=== PATIENT | male | born 1995 | race Caucasian/White ===

== ENCOUNTER → 2020-02-09 15:12 | Outpatient (BNVA) | payer MEDICAID, SELFPAY | PROVIDERS: Family Provider Physician Assistant; Visit Provider Nurse Practitioner Family | DX: M25.571 Pain in right ankle and joints of right foot (principal); R60.9 Edema, unspecified | CPT/HCPCS: 73610 ==

== ENCOUNTER 2020-06-15 14:02 | Emergency (ER) | payer MEDICAID, SELFPAY ==
[2020-06-15 14:22] VITALS: BP 134/84; PULSE 91; RESP 12; TEMP 36.9; O2SAT 97; BMI 30.9
--- NOTE | 2020-06-15 14:39 | ED_ITS ---
HPI - General Adult General: Chief complaint: General Medical Stated complaint: SORE THROAT, BILATERAL EAR PAIN Time Seen by Provider: 06/15/20 14:31 Source: patient Mode of arrival: ambulatory Limitations: no limitations History of Present Illness: HPI narrative: sore throat and ear pain Onset (ago): day(s) (3) Review of Systems General: Reports: 10 or more systems reviewed and unremarkable except in HPI and below Const: Reports: change in appetite and fatigue ENMT: Reports: throat pain, uvular edema, enlarged tonsils and odynophagia PFSH ED PFSH: Social History Smoking and tobacco status: current every day smoker Physical Exam Const: COMMON NORMALS: no acute distress, patient oriented x3, no limitations and alert GENERAL APPEARANCE: cooperative and comfortable ORIENTATION/CONSCIOUSNESS: Yes awake, Yes oriented to person, Yes oriented to place and Yes oriented to time HENMT: COMMON NORMALS: normocephalic, atraumatic, external ears normal, EAC's normal, TM's normal bilaterally and Normal external nose present HEAD & SCALP: normal to inspection, normocephalic and atraumatic FACE & SINUS: normal facial exam, sinuses nontender and face symmetric NOSE: Normal external nose present, Normal nares present and No nasal discharge present EXTERNAL EAR: Yes external ears normal EXTERNAL AUDITORY CANAL: EAC's normal TYMPANIC MEMBRANE: TM's normal bilaterally, TM normal on the left and TM abnormal (fluid and slight bulging and pain ) TM laterality: right MOUTH: Normal oral and palatal mucosa present, lip normal and tongue normal THROAT: abnormal tonsil bilateral erythema and hypertrophy and uvular edema Eye: COMMON NORMALS: Equal, round and reactive pupils present, EOMs intact bilaterally and conjunctivae normal GENERAL EYE: appearance normal, both eyes and all related structures and normal light reflex EYELID: eyelids normal CONJUNCTIVA: Yes conjunctivae normal PUPIL: Yes Equal, round and reactive pupils present EOM: Yes EOM abnormal DIRECT OPHTHALMOSCOPY: Yes normal light reflex Neck/C-Spine: COMMON NORMALS: full ROM, no lymphadenopathy, supple, no meningeal signs, no JVD and Thyroid normal GENERAL: Yes normal visual inspection THYROID: Thyroid normal CERVICAL SPINE: Yes cervical ROM normal and Yes normal cervical lordosis Lymph: LYMPHATIC: no lymphadenopathy noted Chest: COMMONS NORMALS: normal inspection of the chest and normal palpation of entire chest wall Resp: COMMON NORMALS: normal respiratory effort, No retractions and clear to auscultation bilaterally AUSCULTATION: clear to auscultation bilaterally Cardio: COMMON NORMALS: no JVD, regular rate, regular rhythm, S1 normal heart sound present, S2 normal heart sound present, No gallops present (Cardio), No clicks present (Cardio), No murmurs present (Cardio), No rub (Cardio) and Peripheral pulses 2+ throughout RATE: regular rate RHYTHM: regular rhythm HEART SOUNDS: S1 normal heart sound present and S2 normal heart sound present PERIPHERAL PULSES: Peripheral pulses 2+ throughout GI: COMMON NORMALS: Normal to inspection, nondistended, normoactive bowel sounds present, Soft to palpation, non-tender and no masses PALPATION: Yes Soft to palpation : COMMON NORMALS: Yes no CVA tenderness BLADDER/KIDNEY EXAM: Yes no CVA tenderness Back/Pelvis: COMMON NORMALS: no CVA tenderness, thoracic and lumbar spine normal to inspection, no thoracic nor lumbar tenderness and thoraco-lumbar ROM normal Extremity: COMMON NORMALS: normal to inspection, full ROM, capillary refill normal, no joint enlargement, no clubbing, cyanosis or edema, no calf tenderness and no pedal edema GENERAL: Yes normal exam except as noted Neuro: COMMON NORMALS: patient oriented x3, moves all extremities, no focal motor deficits, no sensory deficits noted and gait normal SENSORIUM/ORIENTATION: Yes alert, Yes oriented to person, Yes oriented to place and Yes oriented to time MENINGEAL SIGNS: Yes no meningeal signs Psych: COMMON NORMALS: mental status grossly normal, Normal thought process present, cooperative, normal affect, speech normal and activity/motor behavior normal SPEECH: Yes normal speech THOUGHT PROCESS: Normal thought process present Skin: COMMON NORMALS: no rashes or lesions noted, no wounds and turgor normal GENERAL SKIN EXAM: no rashes or lesions noted and turgor normal Course ED course: Pt presents with sore throat and ear pain x 3 days; no noted fever. We will give PCN shot as swallowing pills is very painful for the pt. Steroid and toradol given for swelling and pain. Will DC and advise follow up with PCP if not improved in 48 hours. Vital Signs: Vital signs: Vital Signs Temperature 98.5 F 06/15/20 14:22 Pulse Rate 91 06/15/20 14:22 Respiratory Rate 12 06/15/20 14:22 Blood Pressure 134/84 06/15/20 14:22 Pulse Oximetry 97 06/15/20 14:22 Discharge Plan Discharge Patient Disposition: Home Clinical Impression: Strep pharyngitis Condition: Stable Prescriptions: No Action No Known Home Medications RF: 0 Discharge Orders: Discharge Order (Routine); Ordered 06/15/20 Ordered By: Ashleigh Mccullough Referrals: Jair Zaragoza [Family Provider] - Discharge Diet: Usual diet Discharge Activity: Resume usual activity Activity Restrictions/Additional Instructions: Take benadryl every 8 hours as needed for ear pain and fullness for three days; use matt or zyrtec for allergies daily until first salazar of the year Stand Alone Forms: Work/School 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
[2020-06-15] MEDS: dexamethasone 10 mg/mL INJ IM (14:45)
[2020-06-15] MEDS: ketorolac 60 mg/2 mL INJ IM (14:46)
--- NOTE | 2020-06-15 14:46 | ED_ITS ---
HPI - General Adult General: Chief complaint: General Medical Stated complaint: SORE THROAT, BILATERAL EAR PAIN Time Seen by Provider: 06/15/20 14:31 Source: patient Mode of arrival: ambulatory Limitations: no limitations Review of Systems General: Reports: 10 or more systems reviewed and unremarkable except in HPI and below Const: Denies: fever(s) ENMT: Reports: throat pain, uvular edema, enlarged tonsils and odynophagia PFSH ED PFSH: Social History Smoking and tobacco status: current every day smoker Physical Exam HENMT: THROAT: uvular edema Course Vital Signs: Vital signs: Vital Signs Temperature 98.5 F 06/15/20 14:22 Pulse Rate 91 06/15/20 14:22 Respiratory Rate 12 06/15/20 14:22 Blood Pressure 134/84 06/15/20 14:22 Pulse Oximetry 97 06/15/20 14:22 Discharge Plan Discharge Patient Disposition: Home Clinical Impression: Strep pharyngitis Condition: Stable Prescriptions: No Action No Known Home Medications RF: 0 Discharge Orders: Discharge Order (Routine); Ordered 06/15/20 Ordered By: Ashleigh Mccullough Referrals: Jair Zaragoza [Family Provider] - Discharge Diet: Usual diet Discharge Activity: Resume usual activity Activity Restrictions/Additional Instructions: Take benadryl every 8 hours as needed for ear pain and fullness for three days; use matt or zyrtec for allergies daily until first salazar of the year Stand Alone Forms: Work/School Release Coding 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
[2020-06-15] MEDS: penicillin g (L-A) 1,200,000 unit/2 mL Syr 1200000 UNIT IM (14:52)
== END 2020-06-15 14:56 | disposition home or self-care (01) ==
LOC: ER 14:53
PROVIDERS: Emergency Provider Nurse Practitioner Family; Family Provider Physician Assistant
DX: J02.0 Streptococcal pharyngitis (principal); F17.210 Nicotine dependence, cigarettes, uncomplicated
CPT/HCPCS: 12345; 96372; 99281; 99283; J0561; J1100; J1885

== ENCOUNTER → 2022-04-20 15:27 | Outpatient (BNVA) | payer MEDICAID, SELFPAY | PROVIDERS: Family Provider Physician Assistant; Visit Provider Registered Nurse Neonatal Intensive Care | DX: M25.561 Pain in right knee (principal) | CPT/HCPCS: 73562 ==

== ENCOUNTER 2022-05-02 22:29 | Emergency (ER) | payer MEDICAID, SELFPAY ==
[2022-05-02 22:33] VITALS: BP 131/74; PULSE 91; RESP 18; TEMP 36.9; O2SAT 97; BMI 32.1
--- NOTE | 2022-05-02 23:45 | ED_ITS ---
HPI - Animal Bite General: Chief Complaint: Animal Bite Stated Complaint: Busted lip Time Seen by Provider: 05/02/22 23:44 History of Present Illness: 26-year-old male patient comes in today for complaints of injury to the right lower lip. Patient was playing with his puppy when it accidentally caught his right lower lip. Patient has a gaping laceration approximately 5 mm to the right lower lip. Patient reports dog's immunizations were up-to-date. Patient reports that he does not remember his last tetanus. Review of Systems General: Reports: 10 or more systems reviewed and unremarkable except in HPI and below Skin/Breast: Reports: new lesions PFS ED PFSH: Social History Smoking and tobacco status: current every day smoker Physical Exam HENMT: HEAD & SCALP: normal to inspection MOUTH: lip abnormal (5 mm laceration right lower lip gaping 4 mm) and other Neck/C-Spine: COMMON NORMALS: full ROM Resp: COMMON NORMALS: normal respiratory effort Cardio: COMMON NORMALS: regular rate RATE: regular rate Extremity: COMMON NORMALS: full ROM Skin: TRAUMA: laceration (Right lower lip) linear Procedures Laceration Laceration 1: Site: lip Side (If applicable): right Size (cm): 0.5 Description: linear Depth: simple, single layer Local Anesthetic: lidocaine 1% and with epi Amount of anesthesia used (mL): 1 Pre-repair: wound explored and irrigated extensively Skin layer closed with: vicryl Size (cm): 5-0 Number of sutures: 1 Technique: simple, interrupted Course Vital Signs: Vital signs: Vital Signs Temperature 98.5 F 05/02/22 22:33 Pulse Rate 91 05/02/22 22:33 Respiratory Rate 18 05/02/22 22:33 Blood Pressure 131/74 05/02/22 22:33 Pulse Oximetry 97 05/02/22 22:33 Oxygen Delivery Me thod 05/02/22 22:33 MDM - Animal Bite Medical Decision Making 26-year-old male patient comes in with a laceration to the right lower lip. On exam patient has a 5 mm laceration to the right lower lip that is gaping. Patient also has a superficial abrasion linear to the mid lower lip. Differential diagnosis includes need for prophylaxis antibiotic, need for tetanus immunization, laceration, foreign body. No foreign bodies were noted. Wound was repaired with 1 suture. Patient was started on Augmentin 1 tablet twice a day for 5 days. Reviewed recommendations for further treatment and follow-up. Patient reported understanding. Discharge Plan Discharge Patient Disposition: Home Clinical Impression: Dog bite Qualifiers: Encounter type: initial encounter Qualified Code(s): W54.0XXA - Bitten by dog, initial encounter Lip laceration Qualifiers: Encounter type: initial encounter Qualified Code(s): S01.511A - Laceration without foreign body of lip, initial encounter Condition: Stable Prescriptions: New amoxicillin-pot clavulanate 875-125 mg tablet 1 tab PO BID Qty: 10 0RF Discharge Orders: Discharge ED (Routine); Ordered 05/03/22 Ordered By: Truman Owens Discharge Diet: Usual diet Discharge Activity: Increase activity as tolerated Patient Instructions: Facial Laceration (ED) Activity Restrictions/Additional Instructions: Suture may be removed in 3 to 5 days. Take antibiotic 1 tablet twice a day for 5 days. Drink plenty of water. Acetaminophen and ibuprofen for pain. Follow- up with primary care for further instruction. Return to ER for new concerns. Coding Level of Care Code ED Pharmaceutical Officer for Hilary Berg
[2022-05-03] MEDS: amoxicillin-clav 875-125 mg Tablet 1 TAB PO (00:08)
[2022-05-03] MEDS: tetanus-dipt-pertussis 0.5 mL SDV IM (00:08)
== END 2022-05-03 00:13 | disposition home or self-care (01) ==
PROVIDERS: Emergency Provider Nurse Practitioner Family
DX: S01.511A Laceration without foreign body of lip, initial encounter (principal); F17.200 Nicotine dependence, unspecified, uncomplicated; Z23 Encounter for immunization; W54.0XXA Bitten by dog, initial encounter
CPT/HCPCS: 12011; 90471; 90715; 99283

== ENCOUNTER → 2022-05-17 08:31 | Outpatient (BNVA) | payer MEDICAID, SELFPAY | PROVIDERS: Referring Provider Registered Nurse Neonatal Intensive Care; Visit Provider Specialist | DX: S83.241A Other tear of medial meniscus, current injury, right knee, initial encounter (principal); X58.XXXA Exposure to other specified factors, initial encounter | CPT/HCPCS: 73560; 73565 ==